=== PATIENT | female | born 1960 | race Caucasian/White ===

== ENCOUNTER 2018-01-28 10:31 | Day surgery (SDC) | payer OTHER, SELFPAY ==
[2018-01-28] VITALS (10 sets, daily range): BP systolic 109–150; BP diastolic 65–89; PULSE 66–79; RESP 10–16; TEMP 35.9–37.2; O2SAT 94–100; BMI 31.2
[2018-01-28] MEDS: SODIUM CHLORIDE 0.9% 1,000 ML 200 ML IV (11:12)
--- NOTE | 2018-01-28 12:24 | PM.HP.1 ---
History of Present Illness Date Patient Seen: 01/28/18 Time Patient Seen: 12:15 Chief complaint: [id number] SCREENING COLONOSCOPY Narrative: Patient for screening colonoscopy. Last exam was 10 years ago. No family history colon cancer. Patient History Medical History Benign ovarian cyst (Resolved) Family & Social History Social History: household members spouse Review of Systems Review of Systems All systems reviewed & are unremarkable except as noted in HPI and below Exam Vital Signs (past 8 hours): - 01/28/18 10:46 Temperature 97.5 F L Pulse Rate 75 Respiratory Rate 16 Blood Pressure 150/89 H Pulse Oximetry 100 Oxygen Delivery Method Room Air Narrative Exam Narrative: Operative no apparent distress. Lungs are clear to auscultation. Heart regular rate and rhythm without murmur gallop. Abdomen is protuberant soft nontender without mass. Alert and oriented. Assessment & Plan Plan: Assessment/Plan Narrative: I have discussed the procedure and the rationale with the patient including risks of bleeding, perforation which would necessitate a major operation, failure to find remove all lesions and the potential to tattoo. They appeared to understand and wished to proceed.
--- NOTE | 2018-01-28 12:27 | P.HP_ITS ---
History of Present Illness Date Patient Seen: 01/28/18 Time Patient Seen: 12:15 Chief complaint: [id number] SCREENING COLONOSCOPY Narrative: Patient for screening colonoscopy. Last exam was 10 years ago. No family history colon cancer. Patient History Medical History Benign ovarian cyst (Resolved) Family & Social History Social History: household members spouse Review of Systems Review of Systems All systems reviewed & are unremarkable except as noted in HPI and below Exam Vital Signs (past 8 hours): - 01/28/18 10:46 Temperature 97.5 F L Pulse Rate 75 Respiratory Rate 16 Blood Pressure 150/89 H Pulse Oximetry 100 Oxygen Delivery Method Room Air Narrative Exam Narrative: Operative no apparent distress. Lungs are clear to auscultation. Heart regular rate and rhythm without murmur gallop. Abdomen is protuberant soft nontender without mass. Alert and oriented. Assessment & Plan Plan: Assessment/Plan Narrative: I have discussed the procedure and the rationale with the patient including risks of bleeding, perforation which would necessitate a major operation, failure to find remove all lesions and the potential to tattoo. They appeared to understand and wished to proceed.
--- NOTE | 2018-01-28 12:27 | PM.PREOP ---
Pre-operative Note Interval Note Pre-op Check: Yes History & Physical exam performed today by Physician Changes: No ASA Class (for procedural sedation): I
[2018-01-28] MEDS: MIDAZOLAM 5 MG/5 ML VIAL IV (12:53)
[2018-01-28] MEDS: fentaNYL 250 MCG/5 ML INJ IV (12:53)
--- NOTE | 2018-01-28 12:55 | PM.OP.ENDO ---
Operative Date/Time/Diagnoses Date of procedure: 01/28/18 Time of procedure: 12:55 Pre-op diagnosis: Screening examination Post-op diagnosis: same (Occasional diverticulosis. Very tortuous colon. Otherwise normal exam.) Procedure & Clinicians Study performed: Colonoscopy Same procedure as scheduled: Yes Indications: Screening. last colonoscopy 10 years ago. Surgeon: Rodolfo Finney Procedure Notes SCOAP/Timeout: Performed Procedure in detail: The patient was placed in the left lateral decubitus position and underwent IV sedation directed by the surgeon consisting of fentanyl and Versed. Digital exam was remarkable for decreased sphincter tone. The scope was inserted and advanced through the rectum into the sigmoid, descending, transverse, and ascending colon. Patient had occasional diverticulosis. The progression through her colon was quite slow and difficult. She had a lot of tortuosity. We repositioned the patient applied pressure in added a stiffener and able to finally get through to the cecum.. The cecum was reached identified by the ileocecal valve and the appendiceal opening. The scope was gradually brought out. No Polyps were found. The scope ultimately was retroflexed in the rectum. The appearance was normal except for some minor scarring on old hemorrhoidal disease. No active problem.. The scope was removed and the patient tolerated the procedure well Scope withdrawal time: Seven and 0.5 min Sedation minutes: 30 Findings: diverticulosis and other findings (Very tortuous colon) Specimen(s): none sent Complications: none Recommendations: Colonscopy in 10 years Follow up: as needed Disposition: PACU
[2018-01-28] MEDS: ONDANSETRON 4 MG/2 ML INJ IV (13:34)
[2018-01-28] MEDS: SODIUM CHLORIDE 0.9% 1,000 ML 42 ML IV (13:52)
--- NOTE | 2018-01-28 14:33 | SUR.PHASEII ---
patient had 1500 ml .9 NS total.
== END 2018-01-28 14:43 | disposition home or self-care (01) ==
PROVIDERS: Visit Provider Specialist
PROC: 0DJD8ZZ Inspection of Lower Intestinal Tract, Via Natural or Artificial Opening Endoscopic (ICD-10-PCS; CPT 45378; principal; 2018-01-28 11:45)
DX: Z12.11 Encounter for screening for malignant neoplasm of colon (principal); K57.30 Diverticulosis of large intestine without perforation or abscess without bleeding
CPT/HCPCS: 45378; 99152; 99153; J2250; J2405; J3010